=== PATIENT | female | born 1995 | race Caucasian/White ===

== ENCOUNTER 2018-01-04 00:30 | Emergency (ER) | payer OTHER ==
[~2018-01-04] VITALS: Ht 160 cm; Wt 67.4 kg
[~2018-01-04 00:30] MED LIST: MEDR150V
[2018-01-04 01:02] LABS: BASOPHILS # (AUTO) 0.03 x10^3/uL (0-0.1); BASOPHILS % (AUTO) 0 % (0-1); EOSINOPHILS # (AUTO) 0.63 x10^3/uL (0-0.4); EOSINOPHILS % (AUTO) 7 % (1-7); LYMPHOCYTES # (AUTO) 3.26 x10^3/uL (1-3.4); LYMPHOCYTES % (AUTO) 38 % (22-44); MD NO; MEAN CORPUSCULAR HEMOGLOBIN 27.6 pg (27.0-34.8); MEAN CORPUSCULAR HGB CONC 33.4 g/dL (32.4-35.8); MEAN CORPUSCULAR VOLUME 82.5 fL (80-100); MEAN PLATELET VOLUME 9.8 fL (7.4-10.4); MONOCYTES # (AUTO) 0.82 x10^3/uL (0.2-0.8); MONOCYTES % (AUTO) 10 % (2-9); NEUTROPHILS # (AUTO) 3.86 x10^3/uL (1.8-6.8); NEUTROPHILS % (AUTO) 45 % (42-75); PLATELET COUNT 221 x10^3/uL (130-400); RED BLOOD COUNT 4.88 x10^6/uL (3.82-5.3); RED CELL DISTRIBUTION WIDTH 15.7 % (9.6-15.2)
[2018-01-04 01:14] LABS: ALANINE AMINOTRANSFERASE 24 U/L (12-78); ALBUMIN 3.4 g/dL (3.4-5.0); ANION GAP 10 mmol/L (5-15); CALCIUM 8.7 mg/dL (8.5-10.1); CHLORIDE 113 mmol/L (98-107)
[2018-01-04 01:17] LABS: ALKALINE PHOSPHATASE 93 U/L (45-117); BILIRUBIN,TOTAL 0.2 mg/dL (0.2-1.0); CREATININE 0.77 mg/dL (0.55-1.02); TOTAL PROTEIN 7.7 g/dL (6.4-8.2)
[2018-01-04 01:27] LABS: CULTURE INDICATED? YES; HCG UR SG 1.033 (1.003-1.030); MICROSCOPIC INDICATED
[2018-01-04 02:05] VITALS: BP 130/83
[2018-01-04] MEDS ORDERED: HYDROcodone/APAP 5/325 TABLET ONE (02:21)
[2018-01-04] MEDS ORDERED: HYDROcodone/APAP 5/325 TABLET PO ONE (02:30)
[2018-01-04] MEDS ORDERED: KETOROLAC 30 MG/1 ML ONE (02:38)
[2018-01-04] MEDS ORDERED: KETOROLAC 30 MG/1 ML IM ONE (03:00)
== END 2018-01-04 02:52 | disposition home or self-care (01) ==
LOC: ED 00:58
DX: K59.00 Constipation, unspecified (principal); R31.29 Other microscopic hematuria; R11.2 Nausea with vomiting, unspecified; Z87.442 Personal history of urinary calculi
CPT/HCPCS: 36415; 74021; 76830; 80053; 81001; 81025; 83690; 85025; 87086; 96372; 99285; J1885